=== PATIENT | female | born 1950 | race Caucasian/White ===

== ENCOUNTER 2023-08-31 18:51 | Emergency (ER) | payer MEDICARE ==
[2023-08-31] MEDS: Lidocaine 1% 5 ML VIAL INJECT ONE (19:00)
[2023-08-31] MEDS: Bacitracin Oint 1 GM U/D Packet TOP ONE (19:20)
== END 2023-08-31 19:25 | disposition home or self-care (01) ==
LOC: LB.ED 18:51
DX: S60.451A Superficial foreign body of left index finger, initial encounter (principal); X58.XXXA Exposure to other specified factors, initial encounter; Z79.899 Other long term (current) drug therapy
CPT/HCPCS: 99283